=== PATIENT | female | born 1965 | race Two or more races ===

== ENCOUNTER 2017-08-12 17:24 | Emergency (ER) | payer BC, SELFPAY ==
[~2017-08-12] VITALS: Ht 160 cm; Wt 68.1 kg
[2017-08-12 17:28] VITALS: BP 130/85
[2017-08-12] MEDS ORDERED: DIAZEPAM 5 MG TABLET PO ONE (19:00)
[2017-08-12] MEDS ORDERED: KETOROLAC 30 MG/1 ML IM ONE (19:00)
[2017-08-12] MEDS ORDERED: DIAZEPAM 5 MG TABLET ONE (19:03)
[2017-08-12] MEDS ORDERED: KETOROLAC 30 MG/1 ML ONE (19:03)
== END 2017-08-12 20:37 | disposition home or self-care (01) ==
LOC: ED 20:30
DX: S16.1XXA Strain of muscle, fascia and tendon at neck level, initial encounter (principal); S80.02XA Contusion of left knee, initial encounter; M62.830 Muscle spasm of back; Z90.49 Acquired absence of other specified parts of digestive tract; V49.9XXA Car occupant (driver) (passenger) injured in unspecified traffic accident, initial encounter; Y93.89 Activity, other specified; Y92.410 Unspecified street and highway as the place of occurrence of the external cause; Y99.8 Other external cause status
CPT/HCPCS: 72125; 73564; 96372; 99284; J1885

== ENCOUNTER 2019-01-06 15:06 | Emergency (ER) | payer BC ==
[~2019-01-06] VITALS: Ht 160 cm; Wt 70.8 kg
[2019-01-06 15:25] VITALS: BP 135/84
[2019-01-06] MEDS ORDERED: DEXAMETHASONE 4 MG/ML, 1ML PO ONE (15:30)
[2019-01-06] MEDS ORDERED: HYDROcodone/APAP 7.5-325MG/15ML UDC PO STA (15:30)
[2019-01-06] MEDS ORDERED: HYDROcodone/APAP 7.5-325MG/15ML UDC ONE (15:51)
[2019-01-06] MEDS ORDERED: DEXAMETHASONE 4 MG/ML, 5ML ONE (15:51)
[2019-01-06 16:01] LABS: RAPID INFLUENZA A Negative (Negative); RAPID INFLUENZA B Negative (Negative)
[2019-01-06 16:55] LABS: MICROSCOPIC INDICATED
--- NOTE | 2019-01-06 17:43 | NUR ---
Patient/Caregiver given discharge instructions and they have confirmed that they understand the instructions. Patient ambulatory with steady gait.
== END 2019-01-06 17:44 | disposition home or self-care (01) ==
LOC: ED 17:30
DX: J02.0 Streptococcal pharyngitis (principal); N30.00 Acute cystitis without hematuria; R11.0 Nausea; F32.9 Major depressive disorder, single episode, unspecified; Z90.49 Acquired absence of other specified parts of digestive tract; Z90.710 Acquired absence of both cervix and uterus
CPT/HCPCS: 81001; 87081; 87147; 87400; 87880; 99283; J1100

== ENCOUNTER 2019-03-15 18:06 | Emergency (ER) | payer BC ==
[~2019-03-15] VITALS: Ht 160 cm; Wt 73.6 kg
[2019-03-15 18:48] LABS: CULTURE INDICATED? YES; MICROSCOPIC INDICATED
--- NOTE | 2019-03-15 19:00 | NUR ---
Pt to room from lobby.
[2019-03-15 19:01] LABS: BASOPHILS # (AUTO) 0.06 x10^3/uL (0-0.1); BASOPHILS % (AUTO) 1 % (0-1); EOSINOPHILS # (AUTO) 0.19 x10^3/uL (0-0.4); EOSINOPHILS % (AUTO) 3 % (1-7); LYMPHOCYTES # (AUTO) 1.87 x10^3/uL (1-3.4); LYMPHOCYTES % (AUTO) 29 % (22-44); MD NO; MEAN CORPUSCULAR HEMOGLOBIN 30.9 pg (27.0-34.8); MEAN CORPUSCULAR HGB CONC 33.6 g/dL (32.4-35.8); MEAN CORPUSCULAR VOLUME 91.9 fL (80-100); MEAN PLATELET VOLUME 7.6 fL (7.4-10.4); MONOCYTES % (AUTO) 6 % (2-9); NEUTROPHILS # (AUTO) 3.84 x10^3/uL (1.8-6.8); NEUTROPHILS % (AUTO) 60 % (42-75); PLATELET COUNT 285 x10^3/uL (130-400); RED BLOOD COUNT 4.56 x10^6/uL (3.82-5.3); RED CELL DISTRIBUTION WIDTH 13.1 % (9.6-15.2)
[2019-03-15 19:11] LABS: ALBUMIN 3.7 g/dL (3.4-5.0); ANION GAP 6 mmol/L (5-15); CALCIUM 8.7 mg/dL (8.5-10.1); CHLORIDE 106 mmol/L (98-107); CREATININE 0.72 mg/dL (0.55-1.02)
[2019-03-15] MEDS ORDERED: MULT-464 PO (19:15)
[2019-03-15] MEDS ORDERED: PHENAZOPYRIDINE 200 MG TABLET PO ONE (19:30)
[2019-03-15] MEDS ORDERED: PHENAZOPYRIDINE 200 MG TABLET ONE (20:08)
[2019-03-15] MEDS ORDERED: CEFDINIR 300 MG CAPSULE ONE (20:53)
[2019-03-15 20:57] VITALS: BP 117/66
[2019-03-15] MEDS ORDERED: CEFDINIR 300 MG CAPSULE PO ONE (21:00)
== END 2019-03-15 21:18 | disposition home or self-care (01) ==
LOC: ED 19:14
DX: N39.0 Urinary tract infection, site not specified (principal); Z90.49 Acquired absence of other specified parts of digestive tract; Z90.710 Acquired absence of both cervix and uterus; F32.9 Major depressive disorder, single episode, unspecified; R10.30 Lower abdominal pain, unspecified
CPT/HCPCS: 36415; 74176; 80048; 81001; 82040; 85025; 87086; 99284

== ENCOUNTER → 2019-10-20 | Outpatient (CLI) | payer BC ==
[~2019-10-20] MED LIST: MULT-464 PO
== END | disposition home or self-care (01) ==
LOC: RAD 14:57
PROVIDERS: ATTEND Nurse Practitioner Family
DX: Q30.1 Agenesis and underdevelopment of nose (principal); J34.89 Other specified disorders of nose and nasal sinuses
CPT/HCPCS: 70486

== ENCOUNTER 2020-10-20 15:18 | Emergency (ER) | payer BC ==
[~2020-10-20] VITALS: Ht 160 cm; Wt 66.7 kg
--- NOTE | 2020-10-20 15:19 | NUR ---
PT BROUGHT BACK FROM TRIAGE CODE 250- PER DAUGHTER PATIENT COMPLAINED OF ABD PAIN STARTING THIS AM WITH VAGINAL SPOTTING. AROUND 1300 THE PATIENT DEVELOPED STABBING CHEST PAIN WITH LEFT ARM PAIN, AND SOB. THE PATIENT IS ALERT, ORIENTED AND ABLE TO ANSWER QUESTIONS.
[2020-10-20] MEDS ORDERED: MORPHINE SULFATE 4 MG/ML, 1ML ONE (15:30)
[2020-10-20] MEDS ORDERED: ONDANSETRON 2MG/ML, 2ML ONE (15:30)
[2020-10-20] MEDS ORDERED: ONDANSETRON 2MG/ML, 2ML IVPush ONE (15:30)
[2020-10-20] MEDS ORDERED: PLEASE ENTER HEIGHT AND WEIGHT MC SCH (15:30)
[2020-10-20] MEDS ORDERED: SODIUM CHLORIDE FLUSH 10ML SYR IVF ONE (15:30)
[2020-10-20] MEDS ORDERED: SODIUM CHLORIDE 0.9% 1,000ML IVBOLUS ONE (15:30)
[2020-10-20] MEDS ORDERED: MORPHINE SULFATE 4 MG/ML, 1ML IVPush ONE (15:30)
[2020-10-20 15:32] LABS: BASOPHILS % (AUTO) 1 % (0-1); EOSINOPHILS % (AUTO) 1 % (1-7); LYMPHOCYTES % (AUTO) 33 % (22-44); MEAN CORPUSCULAR HGB CONC 34.6 g/dL (32.4-35.8); MEAN PLATELET VOLUME 7.7 fL (7.4-10.4); MONOCYTES % (AUTO) 4 % (2-9); NEUTROPHILS % (AUTO) 61 % (42-75); PLATELET COUNT 293 x10^3/uL (130-400); RED BLOOD COUNT 4.65 x10^6/uL (3.82-5.3); RED CELL DISTRIBUTION WIDTH 12.9 % (9.6-15.2)
[2020-10-20 15:35] LABS: MD NO
[2020-10-20] MEDS ORDERED: ASCO500T23 PO (15:40)
[2020-10-20] MEDS ORDERED: METF500T17 PO (15:40)
[2020-10-20 15:41] LABS: ALANINE AMINOTRANSFERASE 51 U/L (12-78); ALBUMIN 4.2 g/dL (3.4-5.0); ANION GAP 9 mmol/L (5-15); CALCIUM 9.5 mg/dL (8.5-10.1); CHLORIDE 109 mmol/L (98-107); CREATININE 1.04 mg/dL (0.55-1.02)
--- NOTE | 2020-10-20 15:45 | NUR ---
PT TO IMAGING
[2020-10-20 15:46] LABS: ALKALINE PHOSPHATASE 92 U/L (45-117); BILIRUBIN,TOTAL 0.9 mg/dL (0.2-1.0); TOTAL PROTEIN 8.1 g/dL (6.4-8.2); TROPONIN I < 0.015 ng/mL (0.000-0.045)
[2020-10-20] MEDS ORDERED: OMNIPAQUE 350 MG/ML, 100ML BOTTLE ONE (16:00)
--- NOTE | 2020-10-20 16:18 | NUR ---
PT BACK FROM IMAGING, RESTING IN BED NO COMPLAINTS AT THIS TIME, VSS. FAMILY AT BEDSIDE.
[2020-10-20 16:19] VITALS: BP 120/60
--- NOTE | 2020-10-20 16:36 | NUR ---
RECVD REPORT FROM [facility].
--- NOTE | 2020-10-20 16:51 | NUR ---
1ST CONTACT WITH PATIENT. PT WAS ABLE TO AMBULATE TO THE RESTROOM WITH A STEADY GAIT, COLLECTED URINE SPECIMIN. DAUGHTER AT BEDSIDE. CALL LIGHT WITHIN REACH.
[2020-10-20 17:07] LABS: MICROSCOPIC AUTO
[2020-10-20] MEDS ORDERED: KETOROLAC 30 MG/1 ML ONE (17:24)
[2020-10-20] MEDS ORDERED: KETOROLAC 30 MG/1 ML IVPush ONE (17:30)
[2020-10-20] MEDS ORDERED: TAMSULOSIN 0.4 MG CAP.ER.24H PO ONE (18:30)
--- NOTE | 2020-10-20 19:36 | NUR ---
Patient/Caregiver given discharge instructions and they have confirmed that they understand the instructions. Patient ambulatory with steady gait.
== END 2020-10-20 19:50 | disposition home or self-care (01) ==
LOC: ED 16:47
DX: N13.2 Hydronephrosis with renal and ureteral calculous obstruction (principal); R10.31 Right lower quadrant pain; R20.0 Anesthesia of skin; R07.89 Other chest pain; E11.9 Type 2 diabetes mellitus without complications; Z90.49 Acquired absence of other specified parts of digestive tract; Z90.710 Acquired absence of both cervix and uterus
CPT/HCPCS: 36415; 70450; 71045; 74177; 80053; 81001; 83690; 84484; 85025; 96361; 96374; 96375; 99285; J1885; J2270; J2405; J7030; Q9967